=== PATIENT | male | born 1965 | race Caucasian/White ===

== ENCOUNTER 2018-07-15 09:18 | Day surgery (SDC) | payer OTHER ==
[2018-07-12 14:51] VITALS: BMI 26.5
[2018-07-15 09:52] LABS: URINE APPEARANCE CLEAR; URINE BILIRUBIN NEGATIVE (<2.0 mg/dL); URINE COLOR LTYELLOW; URINE GLUCOSE (UA) NEGATIVE (NEGATIVE); URINE KETONE TRACE (NEGATIVE); URINE LEUK ESTERASE 1+ (NEGATIVE); URINE NITRITE NEGATIVE (NEGATIVE); URINE PROTEIN NEGATIVE (NEGATIVE)
[2018-07-15 10:11] LABS: URINE BACTERIA RARE /hpf (NONE SEEN); URINE MUCUS RARE
[2018-07-15] MEDS ORDERED: oxyCODONE HCL 5 MG TABLET PO PRN (10:30)
[2018-07-15] MEDS ORDERED: ONDANSETRON 4 MG/2 ML VIAL IVPUSH PRN (10:30)
[2018-07-15] MEDS ORDERED: PROMETHAZINE HCL 25 MG/1 ML VIAL IVPUSH PRN (10:30)
[2018-07-15] MEDS ORDERED: MIDAZOLAM HCL 2 MG/2 ML SINGLE DOSE VIAL ONE (11:17)
[2018-07-15] MEDS ORDERED: PROPOFOL 20 ML ONE (11:23)
[2018-07-15] MEDS ORDERED: LACTATED RINGERS SOLUTION 1,000 ML IV SCH (12:00)
[2018-07-15] MEDS ORDERED: ACETAMINOPHEN INJECTION 100 ML IVPB ONE ×2 (13:17→13:18)
[2018-07-15] MEDS ORDERED: ACETAMINOPHEN 1000 MG/100 ML VIAL (NON FORMULARY) IVPB ONE (13:20)
[2018-07-15] MEDS ORDERED: ONDANSETRON 4 MG/2 ML VIAL ONE (13:25)
--- NOTE | 2018-07-15 13:29 | OP ---
Operative Note - Note: Operative Date: 07/15/18 Pre-Operative Diagnosis: bph/cap Operation: transurethral resection and vaporization of the prostate Findings: obstructive prostate with 2+ bladder trabeculation Post-Operative Diagnosis: Same as Pre-op Surgeon: Oren Escobedo Anesthesia: General Drains & Tubes with Location: [address]
[2018-07-15 18:08] VITALS: BP 127/65; PULSE 75; TEMP 98.1
--- NOTE | 2018-07-15 21:02 | OP ---
DATE OF OPERATION: 07/15/2018 PREOPERATIVE DIAGNOSIS: Benign prostatic hypertrophy and prostate cancer. POSTOPERATIVE DIAGNOSIS: Benign prostatic hypertrophy and prostate cancer. PROCEDURE: Transurethral resection and vaporization of the prostate utilizing bipolar system. ATTENDING: Abdulkadir Escobedo M.D. ANESTHESIA: General. DESCRIPTION OF OPERATION: The patient was brought in the operating room, placed in supine position on the operating room table. Anesthesia and preoperative antibiotics were administered without complications. Patient was then placed in the dorsal lithotomy position and prepped and draped in the usual sterile manner. A resectoscope was placed under visualization into the bladder. The bladder was investigated and noted to have no evidence of stones or neoplasm. A 3+ obstructive prostate was noted. Resection of the prostate in order to debulk the prostate was performed initially. The margins of the resection were the bladder neck proximally and the verumontanum distally. The resection was performed in a 360-degree fashion. The resection was taken down to the level of the pseudocapsule of the prostate. Once this was performed, all prostatic chips were evacuated from the bladder utilizing the [employer] evacuator. At this point, the working element, which had been the loop, was changed to a button. Vaporization and cauterization was then ensured utilizing the button element of the bipolar system. Residual tissue was vaporized, and excellent hemostasis was attained within the prostatic fossa. The margins of the vaporization and cauterization were the bladder neck proximally and the verumontanum distally. This was done again in a 360-degree fashion. Excellent hemostasis was attained. The bladder was investigated and noted to have no evidence of residual prostatic tissue. There was no evidence of perforation of the bladder. The abdomen was soft on examination during the procedure. With excellent hemostasis, the resectoscope was removed, and a Phoenix catheter placed, 30 mL were inflated into the balloon of the catheter and placed on light traction. Excellent drainage was noted which was light pink in color. The disposition of the patient was to the recovery room. The catheter had been placed to straight drainage. The patient will be observed in the recovery room and the postop area. If the patient continues to do well, he will be discharged home. ABDULKADIR SULTANA M.D. /[id number]
--- NOTE | 2018-07-17 16:11 | PATH ---
Surgical Pathology Report Patient Name: BYRON MORRISSEY [facility]. Rec. #: [id number] /Age/Gender: 1965 (Age: 53) / M Account: [id number] Location: [facility] Taken: 07/15/2018 Received: 07/15/2018 Reported: 07/17/2018 Physicians: Oren Escobedo Specimen(s) Received PROSTATE CHIPS Clinical History Prostate cancer, prostatic hyperplasia Final Diagnosis PROSTATE TISSUE, TRANSURETHRAL RESECTION OF THE PROSTATE: BENIGN PROSTATE TISSUE SHOWING STROMAL AND GLANDULAR HYPERPLASIA, WITH CHRONIC PROSTATITIS. ADJACENT UROTHELIAL MUCOSA SHOWING CHRONIC INFLAMMATION WITH CYSTITIS CYSTICA AND CYSTITIS GLANDULARIS. Electronically Signed Yaw Bautista M.D. Gross Description Received in formalin labeled "prostate tissue," is a 4 g, 5.3 x 4.6 x 0.6 aggregate of multiple fernandez, irregular, firm to rubbery portions of tissue, consistent with prostate chips. The specimen is entirely submitted in 5 cassettes. /07/16/2018 saudi07/16/2018
== END 2018-07-15 17:30 | disposition home or self-care (01) ==
LOC: JASU-SURG 09:18
PROVIDERS: ATTEND Urology
PROC: 0VT08ZZ Resection of Prostate, Via Natural or Artificial Opening Endoscopic (ICD-10-PCS; principal; 2018-07-15 11:00)
DX: C61 Malignant neoplasm of prostate (principal); N40.0 Benign prostatic hyperplasia without lower urinary tract symptoms
CPT/HCPCS: 81003; 81015; 88305-TC; 94760; J0131